=== PATIENT | female | born 1995 | race American Indian/Alaskan Native ===

== ENCOUNTER 2017-11-22 14:06 | Outpatient (CLI) | payer BC ==
--- NOTE | 2017-11-22 16:33 | XRay Report ---
XRAY LEFT KNEE 4 THREE VIEWS: 11/22/17 CLINICAL: Knee pain. FINDINGS: No fracture or dislocation. The medial and lateral joint spaces are normal. A small inferior patellofemoral osteophyte.No joint effusion.Normal soft tissues. IMPRESSION: Mild patellofemoral joint arthritis.
== END 2017-11-22 14:07 | disposition home or self-care (01) ==
LOC: SPVIMAG 14:06
PROVIDERS: ATTEND Orthopaedic Surgery
DX: M17.12 Unilateral primary osteoarthritis, left knee (principal)